=== PATIENT | female | born 1945 | race Caucasian/White ===

== ENCOUNTER 2017-11-23 16:55 | Emergency (ER) | payer MEDICARE ==
--- NOTE | 2017-11-23 18:33 | RAD ---
LEFT FINGER THREE VIEWS: History: Fall. Trauma. Injury. FINDINGS: There is a mildly displaced likely intraarticular fracture of the proximal phalanx space of the small finger. There is moderate dorsal angulation. IMPRESSION: Dorsally angulated, comminuted likely intraarticular fracture of the proximal phalanx space of the sm all finger. POS: HOME
[2017-11-23] MEDS ORDERED: Ibuprofen 200 MG TAB ONE (18:45)
[2017-11-23] MEDS ORDERED: Bacitracin Zinc 1 Packet ONE ×3 (18:45→20:35)
[2017-11-23] MEDS ORDERED: Bupivacaine 0.25% 10 ML VIAL ONE (18:45)
--- NOTE | 2017-11-23 19:49 | CT ---
BRAIN CT WITHOUT IV CONTRAST: History: 72-year-old female with history of injury following a trip and fall. Comparison: 03-03-17 FINDINGS: Noncontrast brain CT scan demonstrates minimal focal soft tissue swelling of the right frontal region . No focal mass or midline shift. No intra or extraaxial hemorrhage. Sinuses and mastoid are clear. IMPRESSION: No acute intracranial process. No mass or bleed. Minimal right frontal soft tissue scalp swelling. POS: [facility]
[2017-11-23] MEDS ORDERED: Adacel (T-DAP) 0.5 ML VIAL ONE (20:17)
--- NOTE | 2017-11-23 20:21 | CT ---
FACIAL BONE CT SCAN WITHOUT IV CONTRAST: History: Facial bone injury following a fall. FINDINGS: Minimal right frontal scalp soft tissue swelling. Very mild sinus mucosal disease. No evidence for ac neetu facial bone fracture. The orbits are intact. The mandible is intact. Zygomatic arches are unremar kable. IMPRESSION: No acute facial bone fracture. Very minimal sinus mucosal changes. POS: [facility]
--- NOTE | 2017-11-23 20:42 | RAD ---
LEFT FIFTH FINGER TWO VIEWS: History: 72-year-old female with history of post reduction proximal phalanx fracture. FINDINGS: There is a persistent irregular fracture through the base of the proximal phalanx of the fifth finger with some dorsal angulation. This amount of angulation appears to be slightly improved from the prio r study. IMPRESSION: Proximal phalanx fracture with some persistent dorsal angulation. POS: [facility]
== END 2017-11-23 20:40 | disposition home or self-care (01) ==
LOC: ERS 16:55
DX: S62.617A Displaced fracture of proximal phalanx of left little finger, initial encounter for closed fracture (principal); S00.83XA Contusion of other part of head, initial encounter; F41.9 Anxiety disorder, unspecified; W01.0XXA Fall on same level from slipping, tripping and stumbling without subsequent striking against object, initial encounter; Y92.009 Unspecified place in unspecified non-institutional (private) residence as the place of occurrence of the external cause
CPT/HCPCS: 26725; 70450; 70486; 90715; S0020

== ENCOUNTER 2019-08-17 09:25 | Outpatient (CLI) | payer MEDICARE ==
--- NOTE | 2019-08-17 10:45 | MMO ---
Bilateral MAMMO Bilat Screen DDI+SYDNIE. CLINICAL HISTORY: Patient is 74 years old and is seen for screening. The patient has the following family history of breast cancer: 2 maternal aunts. The patient has no personal history of cancer. VIEWS: The views performed were: bilateral craniocaudal with tomosynthesis and bilateral mediolateral oblique with tomosynthesis. FILMS COMPARED: The present examination has been compared to prior imaging studies performed at [facility] on 06/18/2016, 06/24/2017 and 07/03/2018, and at [facility] [place] on 04/26/2009. This study has been interpreted with the assistance of computer-aided detection. MAMMOGRAM FINDINGS: There are scattered fibroglandular densities. There are no suspicious masses, suspicious calcifications, or new areas of architectural distortion. IMPRESSION: THERE IS NO MAMMOGRAPHIC EVIDENCE OF MALIGNANCY. A ROUTINE FOLLOW-UP MAMMOGRAM IN 1 YEAR IS RECOMMENDED. THE RESULTS OF THIS EXAM WERE SENT TO THE PATIENT. ACR BI-RADS Category 1 - Negative MAMMOGRAPHY NOTE: 1. A negative mammogram report should not delay a biopsy if a dominant of clinically suspicious mass is present. 2. Approximately 10% to 15% of breast cancers are not detected by mammography. 3. Adenosis and dense breasts may obscure an underlying neoplasm. Reported by: SUELLEN GRAY MD Electonically Signed: [id number]
--- NOTE | 2019-08-17 11:12 | BD ---
DEXA BONE DENSITY STUDY: HISTORY: Postmenopausal. LUMBAR SPINE BMD (g/cm2) T-SCORE L1 0.885 -1.0 L2 0.955 -0.7 L3 0.988 -0.9 L4 1.023 -0.3 TOTAL 0.970 -0.7 LEFT FEMORAL NECK 0.655 -1.7 TOTAL 0.870 -0.6 IMPRESSION: 1. Normal bone mineral density of the lumbar spine. 2. Osteopenia of the left femoral neck. TEN YEAR FRACTURE RISK: Major osteoporotic fracture: 11% Hip fracture: 2.1% These fracture probabilities are calculated for an untreated patient. POS: [facility]
== END 2019-08-17 09:26 | disposition home or self-care (01) ==
LOC: BICMAMMO 09:25
PROVIDERS: ATTEND Internal Medicine
DX: Z12.31 Encounter for screening mammogram for malignant neoplasm of breast (principal); M81.0 Age-related osteoporosis without current pathological fracture; M85.862 Other specified disorders of bone density and structure, left lower leg; Z80.3 Family history of malignant neoplasm of breast
CPT/HCPCS: 77063; 77067; 77080

== ENCOUNTER 2019-10-02 20:35 | Emergency (ER) | payer MEDICARE ==
[2019-10-02 21:00] LABS: #Basophils 0.1 thou/uL (0.0-0.2); #Eosinphils 0.1 thou/uL (0.0-0.7); #Lymphocytes 3.1 thou/uL (1.20-3.40); #Monocytes 0.6 thou/uL (0.11-0.59); #Neutrophils 2.3 thou/uL (1.40-6.50); %Eosinophils 2.2 % (0.0-10.0); %Lymphocytes 49.5 % (21.0-51.0); %Monocytes 9.8 % (0.0-10.0); %Neutrophils 36.5 % (42.0-75.0); Hemoglobin 13.8 g/dL (12.0-16.0); Mean Corpuscular HGB CONC 32.7 g/dL (32.0-36.0); Mean Corpuscular Hemoglobin 30.7 pg (27.0-31.0); Mean Corpuscular Volume 93.9 fL (78.0-98.0); Mean Platelet Volume 5.5 fL (7.4-10.4); Platelet Count 538 thou/uL (130-400); RBC Distribution Width 11.8 % (11.5-14.5); Red Blood Cell (RBC) Count 4.51 mill/uL (4.20-5.40); White Blood Cell (WBC) Count 6.3 thou/uL (4.8-10.8)
--- NOTE | 2019-10-02 21:12 | RAD ---
XR Knee Lt 4 View STANDARD HISTORY: Knee pain COMPARISON: None. FINDINGS: There are mild arthritic changes of the knee with some lateral compartment narrowing no grisel nt effusion or fracture. IMPRESSION: No acute findings.
[2019-10-02 21:24] LABS: ALT (SGPT) 14 U/L (8-55); AST (SGOT) 22 U/L (5-34); Albumin 4.2 g/dL (3.4-4.8); Alkaline Phosphatase 102 U/L (40-110); Anion Gap 16 mmol/L (10-20); BUN (Urea Nitrogen) 16 mg/dL (9.8-20.1); Bilirubin, Total 0.3 mg/dL (0.2-1.2); Calc. Creatinine Clearance 0 mL/min (70-130); Calcium 9.2 mg/dL (7.8-10.44); Carbon Dioxide 24 mmol/L (23-31); Chloride 105 mmol/L (98-107); Estimated GFR-MDRD 60; Globulin 2.9 g/dL (2.4-3.5); Glucose 96 mg/dL (83-110); Potassium 4.6 mmol/L (3.5-5.1); Protein, Total 7.1 g/dL (6.0-8.3); Sodium 140 mmol/L (136-145)
--- NOTE | 2019-10-02 21:54 | ULT ---
US Venous Doppler Lt Unilat HISTORY: Left leg pain and swelling. COMPARISON: None. FINDINGS: Real-time color Doppler evaluation left lower extremity was performed from groin to calf. T his includes evaluation the common femoral superficial profundofemoral saphenous popliteal and posterior tibial veins. This shows a patent deep venous system. There is normal compressibility and augmentation. IMPRESSION: No evidence of DVT of the left lower extremity.
== END 2019-10-02 23:09 | disposition home or self-care (01) ==
LOC: ERS 20:35
DX: M54.32 Sciatica, left side (principal); F41.9 Anxiety disorder, unspecified
CPT/HCPCS: 36415; 80053; 85025; 85379

== ENCOUNTER 2019-11-13 11:58 | Emergency (ER) | payer MEDICARE ==
--- NOTE | 2019-11-13 13:28 | RAD ---
EXAM: Chest 2 views: HISTORY: Cough with fever COMPARISON: None. FINDINGS: Minimal linear parenchymal changes in both bases having more the appearance of chronic change. Possib le small nodule in the posterior aspect of the right lower lobe. Heart size:Within normal limits. Lungs:No confluent pneumonia. Atherosclerotic changes of the aorta. No confluent pneumonia, overt edema, pleural effusion, pneumothorax, or other significant acute proce ss. IMPRESSION: Possible 0.6 cm nodule in the posterior right lower lobe. Consider nonemergent follow-up chest CT scan for further assessment in this regard. Minimal chronic appearing linear changes in both lung bases. Atherosclerosis of the aorta. No acute intrathoracic disease. Code lung nodule
== END 2019-11-13 13:47 | disposition home or self-care (01) ==
LOC: ERS 11:58
DX: J10.1 Influenza due to other identified influenza virus with other respiratory manifestations (principal)
CPT/HCPCS: 71046; 87804

== ENCOUNTER 2019-11-14 09:16 | Observation (INO) | payer MEDICARE ==
[2019-11-14 10:24] LABS: #Lymphocytes 0.8 thou/uL (1.20-3.40); #Monocytes 0.5 thou/uL (0.11-0.59); #Neutrophils 3.8 thou/uL (1.40-6.50); %Basophils 0.3 % (0.0-1.0); %Eosinophils 0.1 % (0.0-10.0); %Lymphocytes 14.6 % (21.0-51.0); %Monocytes 10.3 % (0.0-10.0); %Neutrophils 74.7 % (42.0-75.0); Mean Corpuscular HGB CONC 33.9 g/dL (32.0-36.0); Mean Corpuscular Hemoglobin 31.1 pg (27.0-31.0); Mean Corpuscular Volume 91.8 fL (78.0-98.0); Mean Platelet Volume 5.4 fL (7.4-10.4); Platelet Count 391 thou/uL (130-400); RBC Distribution Width 11.7 % (11.5-14.5); Red Blood Cell (RBC) Count 4.49 mill/uL (4.20-5.40); White Blood Cell (WBC) Count 5.1 thou/uL (4.8-10.8)
[2019-11-14] MEDS ORDERED: Ketorolac Tromethamine 30 MG/ML VIAL ONE (10:28)
[2019-11-14 10:47] LABS: ALT (SGPT) 33 U/L (8-55); AST (SGOT) 45 U/L (5-34); Albumin 4.1 g/dL (3.4-4.8); Alkaline Phosphatase 86 U/L (40-110); Anion Gap 13 mmol/L (10-20); BUN (Urea Nitrogen) 13 mg/dL (9.8-20.1); Bilirubin, Total 0.3 mg/dL (0.2-1.2); Calc. Creatinine Clearance 0 mL/min (70-130); Calcium 8.9 mg/dL (7.8-10.44); Carbon Dioxide 24 mmol/L (23-31); Chloride 102 mmol/L (98-107); Estimated GFR-MDRD 80; Globulin 2.8 g/dL (2.4-3.5); Glucose 115 mg/dL (83-110); Potassium 4.1 mmol/L (3.5-5.1); Protein, Total 6.9 g/dL (6.0-8.3); Sodium 135 mmol/L (136-145)
--- NOTE | 2019-11-14 12:46 | CT ---
CT HEAD: Date: 11/14/19 COMPARISON: None. HISTORY: Fall, trauma, pain. FINDINGS: There is an incompletely assessed fracture involving the orbital floor/anterior wall of right maxilla ry sinus. There is also a fracture involving the posterolateral aspect of the maxillary sinus on the right and there is a fracture involving the lateral orbital wall on the right with adjacent subcutane ous emphysema. No intracranial hemorrhage, midline shift, mass effect, or ventricular enlargement. IMPRESSION: Extensive incompletely imaged right-sided facial fractures. CT examination of the face advised. No in tracranial hemorrhage. POS: [facility]
--- NOTE | 2019-11-14 12:58 | CT ---
CT FACIAL BONES: Date: 11/14/19 COMPARISON: None. HISTORY: Fall, trauma. TECHNIQUE: Axial CT imaging at 2.5 mm intervals through the facial bones with coronal and sagittal reformatted i maging. FINDINGS: The frontal sinuses, ethmoid air cells, and sphenoid sinuses appear grossly unremarkable. Imaged mast oid air cells are unremarkable, as is the left maxillary sinus. The right maxillary sinus is nearly c ompletely opacified and contains hyperdense material consistent with hemorrhage. There is a comminute d fracture of the orbital floor on the right with minimal inferior depression measuring in the 2 mm r richar. There is a comminuted fracture involving the anterior wall of the maxillary sinus on the right with posterior displacement of lateral fracture fragments measuring 7 mm. There is a multifocal commi nuted fracture of the posterior, inferior, and lateral zaragoza of the right maxillary sinus. The poly operator ior medial component of this fracture extends into the pterygopalatine fossa on the right. No fractur e of the pterygoid plates. The zygomatic arches demonstrate no evidence for fracture. There is a comm inuted and impacted lateral orbital wall fracture on the right. There is adjacent subcutaneous gas. On the coronal reformatted imaging, the medial orbital wall appears intact bilaterally. The orbital f campbell on the left is intact. Neither temporomandibular joint is dislocated. No acute fracture of the mandible. There is degenerative change at the atlantoaxial interspace. IMPRESSION: Extensive comminuted fracture deformities involving the anterior wall, posterior wall, and inferior a spect of the maxillary sinus on the right with depression and comminution. There is a comminuted orbi ariadna floor fracture on the right as well. There is also an impacted and comminuted lateral orbital wal l fracture on the right. No fracture of the mandible. No left-sided facial bone fractures. POS: [facility]
[2019-11-14] MEDS ORDERED: Ondansetron PF 4 MG/2 ML Vial ONE (14:27)
[2019-11-14] MEDS ORDERED: Ondansetron PF 4 MG/2 ML Vial IVP PRN (14:49)
[2019-11-14] MEDS ORDERED: Ondansetron ODT 4 MG TAB SL PRN (14:49)
[2019-11-14] MEDS ORDERED: Acetaminophen 325 MG TAB PO PRN (14:49)
[2019-11-14] MEDS ORDERED: HYDROcodone/Acetaminophen 5/325 mg Tablet PO PRN ×2 (14:49)
[2019-11-14 16:08] VITALS: BMI 26.6
[2019-11-14] MEDS ORDERED: Ketorolac Tromethamine 30 MG/ML VIAL IVP SCH (16:45)
[2019-11-14] MEDS ORDERED: traMADol HCl 50 MG TAB PO PRN (17:57)
[2019-11-14] MEDS ORDERED: Sodium Chloride 0.9% 1,000 ML IV SCH (18:00)
[2019-11-14] MEDS: Sodium Chloride 0.9% 1,000 ML IV SCH ×2 (18:02→22:10)
--- NOTE | 2019-11-14 18:48 | HP ---
PRIMARY CARE PHYSICIAN: Dr. Hue Gill. CHIEF COMPLAINT: Syncope. HISTORY OF PRESENT ILLNESS: A 74-year-old female, who actually presented to the emergency department yesterday for a 2-day history of flu-like symptoms, diagnosed with influenza A infection, discharged home on oral Tamiflu, who awoke this morning feeling worse associated with exertional dizziness and lightheadedness and en route from dining room to living room, had a syncopal episode on wooden floor with trauma to the right side of her face, prompting ER evaluation. Denies seizure activity. In the ER, trauma series revealed maxillary and orbital fractures. Oral maxillofacial surgeon was consulted. Vital signs and laboratory values were unremarkable. The patient was administered IV Toradol and admitted for further observation. At bedside, the patient corroborates history. She notes a several-day history of fatigue, diminished oral intake, myalgias, productive phlegm and coughing with some wheezing symptoms. She denies any nausea, vomiting, diarrhea, angina. She reports traveling to [place] last week for a pentecostalism convention and was exposed to sick contacts. She had received her influenza vaccine this season. She continues to feel weak and deconditioned. She lives at home alone and is functional at baseline without ambulatory or assistive devices. PAST MEDICAL HISTORY: Acute influenza A infection diagnosed yesterday in emergency room, unspecified thrombocytosis. PAST SURGICAL HISTORY: Hemorrhoidectomy, cholecystectomy. SOCIAL HISTORY: The patient lives at home alone. She is functional, ambulatory at baseline. Her daughter lives across the street. She notes social alcohol intake and denies any tobacco use. ALLERGIES: LISTED TO CODEINE CAUSING NAUSEA AND VALIUM. REVIEW OF SYSTEMS: Pertinent positives as per HPI. Remainder of review of systems is otherwise negative. HOME MEDICATIONS: Will be reviewed as per admission medication reconciliation. FAMILY HISTORY: The patient's mother at age 94 from old age. The patient' s father from stroke. The patient's sister from cardiac valve problems. PHYSICAL EXAMINATION: VITAL SIGNS: Temp 98.2, pulse 91, respirations 18 and nonlabored, blood pressure 139/86, oxygen saturation 97% on room air. GENERAL APPEARANCE: This is an elderly female, malaise in appearance, who is awake, alert, oriented, coherent, and lucid. HEENT: Normocephalic. There are ecchymotic changes noted in the right maxillary region with nonspecific tenderness to palpation. Extraocular muscles are intact. Mucous membranes are dry in appearance. Symmetrical smile noted. NECK: Supple. CARDIOVASCULAR: S1 and S2. Regular rate and rhythm. No harsh murmur. No reproducible chest wall tenderness. LUNGS: Bilateral equal air entry on posterior auscultation with scattered coarse breath sounds and audible productive cough. ABDOMEN: Soft, nondistended. Nonspecific tenderness. EXTREMITIES: No appreciable edema in lower extremities, no deformities or cyanosis noted. SKIN: Warm to touch. No rash or pallor or abrasion. LABORATORY DATA: WBC 5.1, H and H 14/41.2, platelets 391. Sodium 135, potassium 4.1, chloride 102, bicarb 24, glucose 115, BUN and creatinine 13/0.72. LFTs unremarkable. Troponin I negative x1. IMAGING STUDIES: Noncontrast head CT on 11/14/2019, reveals an extensive incompletely imaged right-sided facial fractures with no intracranial hemorrhage. CT facial bones without contrast on 11/14/2019, reveals extensive comminuted fracture deformities involving the anterior wall, posterior wall, and inferior aspect of the maxillary sinus on the right with depression and comminution. There is a comminuted orbital floor fracture on the right as well. There is also an impacted and comminuted lateral orbital wall fracture on the right. No mandibular fracture. No left-sided facial bone fractures. ASSESSMENT: 1. Syncope, suspect orthostatic etiology. The patient will be admitted as observation status and placed on telemetry monitoring. I suspect the symptoms are attributed secondary to acute influenza A infection and volume depleted state. We will bolus 1 L isotonic saline, continue maintenance fluids with isotonic saline , obtain orthostatic vital signs, and monitor for improvement in the patient's symptoms. We will obtain PT and OT consultations for the patient's safety. Noted multiple maxillofacial fractures. The patient denies any anginal complaints. 2. Acute maxillofacial fracture secondary to a syncopal episode. Noted CT facial structures with fracture deformities involving the right maxillary sinus and right orbital floor and right orbital wall. Oral maxillofacial surgeon has been consulted noting extensive fracture deformities to guide the patient's management. We will continue to monitor for pain control with oral Tylenol and tramadol and as needed IV Toradol for severe breakthrough pain. Noted codeine allergy and we will monitor for the patient's tolerance of oral tramadol as the patient is agreeable and denies any prior history of anaphylaxis. 3. Acute influenza A infection. Diagnosed yesterday in ER. patient received flu vaccine this season. Continue appropriate isolation. Continue oral Tamiflu 75 mg BID for total 5 day duration. 4. History of unspecified thrombocytosis. The patient follows with [facility] and is on aspirin 81 mg daily, which we will continue. 5. Pulmonary nodule, unspecified etiology. On 11/13/2019, chest x-ray noted with 6 mm right lower lobe nodule. The patient reports remote history of tobacco use for one year duration. She will require outpatient followup for this and this was discussed with her. DVT prophylaxis with subcutaneous Lovenox. Disposition: The patient will be admitted as observation status and placed on telemetry monitoring. Anticipate less than 24-hour stay. Job ID: [id number] MTDD
[2019-11-14] MEDS: Oseltamivir 75 MG CAP PO SCH (21:53)
[2019-11-14] MEDS: Guaifenesin DM 100-10/5 ML UDCUP PO PRN (22:07)
[2019-11-15] MEDS: Acetaminophen 325 MG TAB PO PRN ×2 (02:14→17:10)
[2019-11-15] MEDS: Guaifenesin DM 100-10/5 ML UDCUP PO PRN (05:08)
[2019-11-15] MEDS: Sodium Chloride 0.9% 1,000 ML IV SCH ×3 (05:08→22:45)
[2019-11-15] MEDS: Ketorolac Tromethamine 30 MG/ML VIAL IVP PRN ×2 (05:58→23:02)
[2019-11-15] MEDS: Oseltamivir 75 MG CAP PO SCH ×2 (08:26→20:36)
[2019-11-15] MEDS: Ondansetron ODT 4 MG TAB PO PRN ×3 (08:26→22:42)
[2019-11-15] MEDS: Aspirin 81 mg Enteric Coated Tablet PO SCH (08:26)
[2019-11-15] MEDS: Enoxaparin Sodium 40 MG/0.4 ML SYRINGE SC SCH (08:27)
--- NOTE | 2019-11-15 10:49 | PDOC.HOSPP ---
- Subjective Encounter Date: 11/15/19 Encounter Time: 10:48 Subjective: nauseated, R chest pain - Objective Vital Signs & Weight: Vital Signs (12 hours) Temp Pulse Resp BP BP BP BP 11/15/19 10:13 65 16 11/15/19 07:25 98 F 60 18 133/75 11/15/19 07:13 63 16 11/15/19 04:00 98.6 F 69 16 131/61 11/15/19 00:20 98.7 F 66 16 133/59 L 135/63 136/62 Pulse Ox 11/15/19 10:13 97 11/15/19 07:25 97 11/15/19 07:13 96 11/15/19 04:00 95 11/15/19 00:20 97 Weight Weight 167 lb 4.8 oz I&O: 11/14/19 11/15/19 11/16/19 06:59 06:59 06:59 Intake Total 701 Output Total 1350 Balance -649 Result Diagrams: 11/14/19 10:16 11/14/19 10:16 Hospitalist ROS - Medication Medications: Active Medications Generic Name Dose Route Start Last Admin Trade Name Freq PRN Reason Stop Dose Admin Acetaminophen 650 mg 11/14/19 17:52 11/15/19 02:14 Tylenol PO 650 mg Q4H PRN Administration Headache/Fever/Mild Pain (1-3) Albuterol/Ipratropium 3 ml 11/14/19 19:00 11/15/19 10:13 Duoneb NEB 3 ml [id number] GEOFFREY Administration Aspirin 81 mg 11/15/19 09:00 11/15/19 08:26 Ecotrin PO 81 mg DAILY GEOFFREY Administration Enoxaparin Sodium 40 mg 11/15/19 09:00 11/15/19 08:27 Lovenox SC 40 mg 0900 GEOFFREY Administration Guaifenesin/Dextromethorphan 15 ml 11/14/19 17:52 11/15/19 05:08 Robitussin Dm PO 15 ml Q4H PRN Administration Cough Sodium Chloride 1,000 mls @ 125 mls/hr 11/14/19 18:00 11/15/19 05:08 Normal Saline 0.9% IV 1,000 mls .Q8H GEOFFREY Administration Ketorolac Tromethamine 15 mg 11/14/19 18:13 11/15/19 05:58 Toradol IVP 11/19/19 18:14 15 mg Q6H PRN Administration Pain Ondansetron HCl 4 mg 11/14/19 17:52 11/15/19 08:26 Zofran Odt PO 4 mg Q6H PRN Administration Nausea/Vomiting Oseltamivir Phosphate 75 mg 11/14/19 21:00 11/15/19 08:26 Tamiflu PO 11/19/19 09:01 Not Given BID GEOFFREY - Exam General Appearance: awake alert ENT - other findings: swollen R face Neck: no JVD Heart: RRR, no murmur Respiratory: CTAB Gastrointestinal: soft, normal bowel sounds Extremities: no edema Hosp A/P (1) Extensive facial fractures Code(s): S02.92XA - UNSP FRACTURE OF FACIAL BONES, INIT FOR CLOS FX Status: Acute Qualifiers: Encounter type: initial encounter Fracture type: closed Qualified Code(s) : S02.92XA - Unspecified fracture of facial bones, initial encounter for closed fracture (2) Syncope and collapse Code(s): R55 - SYNCOPE AND COLLAPSE Status: Acute (3) Influenza Code(s): J11.1 - FLU DUE TO UNIDENTIFIED INFLUENZA VIRUS W OTH RESP MANIFEST Status: Acute (4) Nausea Code(s): R11.0 - NAUSEA Status: Acute - Plan cont iv fluids cont zofran Maxillo-facial surgery consult CXR
--- NOTE | 2019-11-15 11:52 | RAD ---
XR Chest Pa Lat STANDARD HISTORY: Syncope, chest wall pain and tenderness COMPARISON: 11/13/2019 FINDINGS: The heart size is borderline. The lungs are well expanded without focal areas of consolidat ion, pneumothorax or pleural effusions. There are degenerative changes in the spine. IMPRESSION: No radiographic evidence of acute cardiopulmonary process.
--- NOTE | 2019-11-15 16:11 | ULT ---
BILATERAL CAROTID DUPLEX ULTRASOUND: HISTORY: Syncope TECHNIQUE: Grayscale, color-flow and spectral Doppler ultrasound imaging of the extracranial carotid artery syst ems was performed bilaterally. FINDINGS: There is mild plaque formation on either side. The peak systolic velocity in the right ICA measures 99 cm/s with an end-diastolic velocity of 36 cm/ s and a systolic ratio of 1.38. The peak systolic velocity in the left ICA measures 89 cm/s with an end-diastolic velocity of 32 cm/s and a systolic ratio of 1.08. Flow in both vertebral arteries remains antegrade. IMPRESSION: No evidence of hemodynamically significant stenosis
[2019-11-15] MEDS ORDERED: Sodium Chloride 0.65% Nasal 44 ML BOT EA NARE PRN (22:19)
--- NOTE | 2019-11-16 03:41 | CON ---
DATE OF CONSULTATION: 11/15/2019 CONSULTING PHYSICIAN: Dr. Ohraa with the [facility]. HISTORY OF PRESENT ILLNESS: This is a 74-year-old female, who was recently diagnosed with flu and sustained a fall at home, at which time, she struck her face and reports positive loss of consciousness. She was brought to the emergency room for evaluation and I was contacted after CT scan of the face displayed a right ZMC fracture. The plan in the emergency room was for her to be triaged to my office on an outpatient basis for followup as is customary for this type of injury. The patient was ultimately kept in observation overnight and I was reconsulted in the morning by the [facility] team. I again inserted my instructions for outpatient followup with same instructions as being given to the emergency room for a 1-week course of p.o. Augmentin and sinus precautions. I was subsequently asked again to see the patient on an inpatient basis and she was evaluated this evening. The patient denies any visual abnormalities or changes since the injury. She reports abnormal feeling secondary to the right facial edema, but otherwise denies any significant complaints or changes. PAST MEDICAL HISTORY: Positive for influenza A and some nonspecific thrombocytosis. PAST SURGICAL HISTORY: Hemorrhoidectomy, cholecystectomy. ALLERGIES: CODEINE, VALIUM. MEDICATIONS: 1. DuoNeb. 2. Aspirin. 3. Lovenox. 4. Toradol. 5. Zofran. 6. Tamiflu. 7. Tramadol. SOCIAL HISTORY: Social alcohol, negative for tobacco or drugs. PHYSICAL EXAMINATION: VITAL SIGNS: Blood pressure 139/73, pulse of 60, temperature 97.9, respiratory rate 16, 97% oxygen on room air. GENERAL: Alert and oriented x3, no apparent distress. HEAD AND NECK: Shows mild to moderate edema of the right periorbital region and midface region, which has migrated somewhat inferiorly toward the right perimandibular region. Her extraocular movements are intact and her pupils are equally round, reactive to light. Her visual acuity is grossly intact and there is no noted diplopia. Her ear, and nasal exam is within normal limits. Intraorally, she has a large contusion of the right buccal mucosa, but no open wounds noted. Her occlusion appears to be baseline well in her cuspid bilaterally. Her maximum interincisal opening appears to be normal. NECK: Without any significant signs of trauma. Her trachea is midline. There are no bruising or masses noted. LABORATORY DATA: CBC showed a white count of 5.1, hemoglobin 14, platelets 391. Chemistry shows sodium of 135, glucose 115. CT scan of the face showed a right zygomaticomaxillary complex fracture with [id number] displacement and rotation and associated inferior orbital wall fractures in addition to the lateral orbital wall fractures. ASSESSMENT: A 74-year-old female with a right zygomaticomaxillary complex fracture, status post fall from standing without any visual complaints or abnormalities. Additionally of note, there is no significant facial asymmetry noted. However, as would be expected soon after the injury, there was enough right facial edema to make a final assessment of asymmetry impossible. PLAN: As previously recommended, I repeated the following instructions to the patient. She is to follow up in my clinic in approximately 1 week for re-evaluation and continued discussion of whether or not surgery is going to be indicated. She should be on a 1-week course of p.o. Augmentin. She should be on sinus precautions, which include no nose blowing and avoidance of coughing or sneezing. If she has to cough or sneeze, she needs to do so with her mouth open. She and her daughter have been instructed to obtain saline nasal spray from the pharmacy and she should use this should her nasal cavity become congested so that there is no need for blowing her nose. Job ID: [id number]
[2019-11-16] MEDS: Acetaminophen 325 MG TAB PO PRN (06:29)
[2019-11-16] MEDS: Ondansetron ODT 4 MG TAB PO PRN (06:30)
[2019-11-16] MEDS ORDERED: Amoxicillin/Potassium Clav 875 MG TAB PO SCH (07:15)
--- NOTE | 2019-11-16 07:41 | DIS ---
DATE OF ADMISSION: 11/14/2019 DATE OF DISCHARGE: 11/16/2019 PRIMARY CARE PROVIDER: Hue Gill MD Discharged home. FINAL DIAGNOSES: 1. Syncope. 2. Fractures of right facial bones including orbit. 3. Influenza. 4. Dehydration. DISCHARGE MEDICINES: Augmentin 875 p.o. b.i.d. x1 week. ALLERGIES: CODEINE. DIET: As tolerated. CODE STATUS: Full. PENDING AT TIME OF DISCHARGE: Nothing. CONSULTATIONS: Dr. Dago Hairston, Maxillofacial. HOSPITAL COURSE: The patient with a flu, poor intake, was up and about in her home, got dizzy, tried to make it back to the bedroom, fell, was brought to the emergency room where she was found to have fractures of the facial bones on the right, comminuted fracture deformities involving the anterior wall, posterior wall and inferior aspect of the maxillary sinus on the right with depression. There is a comminuted orbital floor fracture on the right as well. She was placed in the hospital for observation. CBC was unremarkable, metabolic profile showed some trivial abnormalities. She was given IV fluids, monitored. Dr. Hairston saw in consultation. We appreciate his input. Recommended antibiotics, to be seen in his office in one week as no decision about the possibility of surgery existed prior to allowing the swelling to go down. The patient is currently alert and oriented. Chest x-ray is normal. She is agreeable with going home. Vital signs are stable. She is being discharged on Augmentin 875 b.i.d. for one week and Dr. Hairston's recommendation to follow up with him in one week. Job ID: [id number]
[2019-11-16] MEDS: Oseltamivir 75 MG CAP PO SCH (08:04)
[2019-11-16] MEDS: Sodium Chloride 0.9% 1,000 ML IV SCH (08:04)
[2019-11-16] MEDS: Aspirin 81 mg Enteric Coated Tablet PO SCH (08:14)
[2019-11-16] MEDS: Enoxaparin Sodium 40 MG/0.4 ML SYRINGE SC SCH (08:16)
[2019-11-16 08:46] VITALS: BP 169/78; TEMP 98.3
== END 2019-11-16 09:22 | disposition home or self-care (01) ==
LOC: ERS 09:16 → 2SW 14:47 → INTOOBSV 14:47
PROVIDERS: ADMIT Hospitalist; ATTEND Hospitalist
DX: R55 Syncope and collapse (principal); S02.40CA Maxillary fracture, right side, initial encounter for closed fracture; S02.31XA Fracture of orbital floor, right side, initial encounter for closed fracture; S02.841A Fracture of lateral orbital wall, right side, initial encounter for closed fracture; J10.1 Influenza due to other identified influenza virus with other respiratory manifestations; D47.3 Essential (hemorrhagic) thrombocythemia; R91.1 Solitary pulmonary nodule; E86.0 Dehydration; F41.9 Anxiety disorder, unspecified; Z79.82 Long term (current) use of aspirin; Z88.5 Allergy status to narcotic agent; W18.30XA Fall on same level, unspecified, initial encounter; Y92.009 Unspecified place in unspecified non-institutional (private) residence as the place of occurrence of the external cause
CPT/HCPCS: 70450; 70486; 71046; 80053; 82550; 84484; 85025; 93005; 93880; 94640 ×3; 96360; 96361 ×3; 96372; 96374; 96375; 96376 ×2; 97139 ×2; 99285; G0378 ×4; 36415; J1650; J1885; J2405; J7620; Q0162

== ENCOUNTER 2019-12-31 09:39 | Outpatient (CLI) | payer MEDICARE ==
--- NOTE | 2019-12-31 10:20 | RAD ---
XR Chest Pa Lat STANDARD HISTORY: Abnormality noted on previous chest x-ray. COMPARISON: 11/15/2019 and 11/13/2019 exams. FINDINGS: Heart size is borderline. There are chronic appearing lung changes seen. The questionable n odular density seen in the right lung base on the 1419 study is not definitely visualized on this study. There is linear scarring present. IMPRESSION: Borderline heart size. The nodular density in the right base is not definitely identified on this study.
== END 2019-12-31 09:40 | disposition home or self-care (01) ==
LOC: BICRAD 09:39
PROVIDERS: ATTEND Internal Medicine
DX: R93.89 Abnormal findings on diagnostic imaging of other specified body structures (principal); R91.8 Other nonspecific abnormal finding of lung field
CPT/HCPCS: 71046

== ENCOUNTER 2020-09-04 13:34 | Outpatient (CLI) | payer MEDICARE ==
--- NOTE | 2020-09-04 14:54 | BD ---
BONE DENSITOMETRY: Date: 09/04/2020 HISTORY: Postmenopausal screening. FINDINGS: Lumbar Spine: BMD (g/cm2) L1 0.963 T-Score: -0.2 L2 0.961 T-Score: -0.6 L3 1.041 T-Score: -0.4 L4 1.073 T-Score: 0.1 Total 1.018 T-Score: -0.3 Total Density 08/17/2019: 0.970 Left Femoral Neck: 0.702 T-Score: -1.3 Total Femur: 0.913 T-Score: -0.2 Total Femoral Density 08/17/2019: 0.870 IMPRESSION: 1. Bone mineral density of the lumbar spine within normal range. 2. Bone mineral density of the femoral neck indicates osteopenia. 10 YEAR FRACTURE RISK: Major osteoporotic fracture: 10% Hip fracture: 1.6% POS: SHAHAB
--- NOTE | 2020-09-04 15:21 | MMO ---
Bilateral MAMMO Bilat Screen [facility]. CLINICAL HISTORY: Patient is 75 years old and is seen for screening. The patient has the following family history of breast cancer: 2 maternal aunts. The patient has no personal history of cancer. VIEWS: The views performed were: bilateral craniocaudal with tomosynthesis and bilateral mediolateral oblique with tomosynthesis. FILMS COMPARED: The present examination has been compared to prior imaging studies performed at [facility] on 06/18/2016, 06/24/2017, 07/03/2018 and 08/17/2019. This study has been interpreted with the assistance of computer-aided detection. MAMMOGRAM FINDINGS: There are scattered fibroglandular densities. There are no suspicious masses, suspicious calcifications, or new areas of architectural distortion. IMPRESSION: THERE IS NO MAMMOGRAPHIC EVIDENCE OF MALIGNANCY. A ROUTINE FOLLOW-UP MAMMOGRAM IN 1 YEAR IS RECOMMENDED. THE RESULTS OF THIS EXAM WERE SENT TO THE PATIENT. ACR BI-RADS Category 1 - Negative MAMMOGRAPHY NOTE: 1. A negative mammogram report should not delay a biopsy if a dominant of clinically suspicious mass is present. 2. Approximately 10% to 15% of breast cancers are not detected by mammography. 3. Adenosis and dense breasts may obscure an underlying neoplasm. Reported by: ANGELES BRENNAN MD Electonically Signed: [id number]
== END 2020-09-04 13:35 | disposition home or self-care (01) ==
LOC: BICMAMMO 13:34
PROVIDERS: ATTEND Internal Medicine
DX: Z12.31 Encounter for screening mammogram for malignant neoplasm of breast (principal); Z13.820 Encounter for screening for osteoporosis; Z78.0 Asymptomatic menopausal state; Z80.3 Family history of malignant neoplasm of breast; M85.852 Other specified disorders of bone density and structure, left thigh
CPT/HCPCS: 77063; 77067; 77080

== ENCOUNTER 2020-09-08 07:37 | Outpatient (CLI) | payer MEDICARE ==
--- NOTE | 2020-09-08 08:44 | ULT ---
ABDOMINAL AORTIC ULTRASOUND: HISTORY: Abdominal aortic aneurysm screening. FINDINGS: Real-time imaging of the abdominal aorta shows a normal-caliber aorta. The proximal aorta has an AP dimension of 2 cm, mid aorta 1.5, and distal 1.4. Common iliac arteries are partially obscured. No aneurysm is seen. IMPRESSION: No evidence of abdominal aortic aneurysm. POS: [facility]
== END 2020-09-08 07:38 | disposition home or self-care (01) ==
LOC: BICULT 07:37
PROVIDERS: ATTEND Internal Medicine
DX: Z00.00 Encounter for general adult medical examination without abnormal findings (principal); Z13.6 Encounter for screening for cardiovascular disorders
CPT/HCPCS: 76775

== ENCOUNTER 2021-04-11 10:00 | Outpatient (CLI) | payer OTHER | END 2021-04-11 10:01 | disposition home or self-care (01) | LOC: DTY/OP 10:00 | PROVIDERS: ATTEND Internal Medicine | DX: E78.00 Pure hypercholesterolemia, unspecified (principal) | CPT/HCPCS: 97802 ==

== ENCOUNTER 2021-10-19 12:55 | Outpatient (CLI) | payer MEDICARE | END 2021-10-19 12:56 | disposition home or self-care (01) | LOC: BICMAMMO 12:55 | PROVIDERS: ATTEND Internal Medicine | DX: Z12.31 Encounter for screening mammogram for malignant neoplasm of breast (principal); Z80.3 Family history of malignant neoplasm of breast | CPT/HCPCS: 77063; 77067 ==

== ENCOUNTER 2023-01-29 09:02 | Outpatient (CLI) | payer MEDICARE | END 2023-01-29 09:03 | disposition home or self-care (01) | LOC: BICMAMMO 09:02 | PROVIDERS: ATTEND Family Medicine | DX: M81.0 Age-related osteoporosis without current pathological fracture (principal); Z78.0 Asymptomatic menopausal state; M85.89 Other specified disorders of bone density and structure, multiple sites | CPT/HCPCS: 77080 ==

== ENCOUNTER 2023-03-12 08:57 | Outpatient (CLI) | payer MEDICARE | END 2023-03-12 08:58 | disposition home or self-care (01) | LOC: BICMAMMO 08:57 | PROVIDERS: ATTEND Family Medicine | DX: Z12.31 Encounter for screening mammogram for malignant neoplasm of breast (principal) | CPT/HCPCS: 77063; 77067 ==